=== PATIENT | male | born 1985 | race Caucasian/White ===

== ENCOUNTER → 2017-04-13 | Outpatient (CLI) | payer MEDICAID ==
[2014-09-14 10:02] VITALS: BMI 20.3
[~2017-04-13] MED LIST: ARTO15 OD; BENZ1 PO; CALC625T57 PO; CEP500; CHOL10005 PO; CHOL100061 PO; DOCU-416 PO; EPIN0.3P3 IM; GLUC-135 PO; GLUC-198 PO; GUAI600T57 PO; HERBS; LEVO75TA68 PO; LIT300CAP PO; LORA10CA3 PO; MELA3TAB31 PO; MIRT-22 PO; MON10 PO; MULT-1078 PO; MULT-859 PO; MULT1CAP PO; NIC10R INH; RISP-29 PO
[2017-04-13 09:29] LABS: LDL CHOLESTEROL 114 mg/dl
== END ==
LOC: LAB 07:54
PROVIDERS: ATTEND Registered Nurse Psychiatric/Mental Health
DX: Z51.81 Encounter for therapeutic drug level monitoring (principal); Z79.899 Other long term (current) drug therapy
CPT/HCPCS: 36415; 80178; 82040; 82247; 82310; 82374; 82435; 82465; 82565; 82947; 83718; 84075; 84132; 84155; 84295; 84439; 84443; 84450; 84460; 84478; 84481; 84520

== ENCOUNTER → 2018-06-20 | Outpatient (CLI) | payer MEDICAID ==
[2014-09-14 10:02] VITALS: BMI 20.3
== END ==
LOC: LAB 10:54
PROVIDERS: ATTEND Family Medicine
DX: F31.5 Bipolar disorder, current episode depressed, severe, with psychotic features (principal)
CPT/HCPCS: 36415; 80178